=== PATIENT | male | born 1935 | race Caucasian/White ===

== ENCOUNTER 2021-11-14 12:40 | Emergency (ER) | payer MEDICARE ==
[~2021-11-14] VITALS: Ht 175.3 cm; Wt 100.0 kg
[2021-11-14] MEDS ORDERED: TETANUS, DIPHTHERIA, PERTUSSIS VAC/PF 0.5ML (>10YR OLD) IM ONE ×2 (13:15→14:45)
[2021-11-14] MEDS ORDERED: SODIUM CHLORIDE 0.9% 1,000 ML IV ONE (13:15)
[2021-11-14 15:02] LABS: HEMATOCRIT. 30.7 % (42.0-52.0); HEMOGLOBIN. 10.4 g/dL (14.0-18.0); MEAN CORPUSCULAR HEMOGLOBIN 31.3 pg (28.0-32.0); MEAN CORPUSCULAR VOLUME 91.9 fL (80.0-94.0); MEAN PLATELET VOLUME 8.8 fl (7.4-10.4); PLATELET 158 x1000/uL (130-400); RED BLOOD CELL COUNT 3.34 mill/uL (4.7-6.1); RED CELL DISTRIBUTION WIDTH 15.8 % (11.6-14.6)
[2021-11-14 15:17] LABS: CHLORIDE 105 mEq/L (98-107)
[2021-11-14 15:48] LABS: CLARITY URINE CLEAR (CLEAR); COLOR URINE DARK YELLOW (YELLOW); KETONES URINE NEGATIVE (NEGATIVE); LEUKOCYTE ESTERASE URINE NEGATIVE (NEGATIVE); NITRITE URINE NEGATIVE (NEGATIVE); OCCULT BLOOD URINE NEGATIVE (NEGATIVE); PH URINE 5.5 (4.5-8.0); PROTEIN URINE 1+ (NEGATIVE); SPECIFIC GRAVITY URINE 1.013 (1.005-1.030)
[2021-11-14] MEDS ORDERED: LIDOCAINE HCL 1% 20ML VIAL (Pyxis) INJ INFIL ONE (17:00)
[2021-11-14 17:17] LABS: PLATELET ESTIMATE NORMAL
[2021-11-14 18:06] VITALS: BP 115/71
== END 2021-11-14 18:07 | disposition left against medical advice (07) ==
LOC: ER 12:40 → CANBEDREQ 22:35
DX: S05.42XA Penetrating wound of orbit with or without foreign body, left eye, initial encounter (principal); R55 Syncope and collapse; J18.9 Pneumonia, unspecified organism; W18.39XA Other fall on same level, initial encounter; Y93.89 Activity, other specified; Y92.89 Other specified places as the place of occurrence of the external cause; Y99.8 Other external cause status; I48.91 Unspecified atrial fibrillation; I10 Essential (primary) hypertension
CPT/HCPCS: 12011; 36415; 70450; 71045; 72125; 72170; 73130; 80053; 81003; 83880; 84484; 85025; 86850; 86900; 86901; 90471; 90715; 93005; 99285; J3490; J7030